=== PATIENT | female | born 1960 | race Caucasian/White ===

== ENCOUNTER 2019-01-27 10:03 | Emergency (ER) | payer OTHER ==
[2019-01-27 10:21] LABS: BASOPHILS % 0.4 % (0.0-1.5); NEUTROPHILS # 2.4 # k/uL (1.4-7.7)
--- NOTE | 2019-01-27 10:30 | Diagnostic Imaging Report ---
PATIENT MR#: [id number] PATIENT PATIENT NAME: MIK GARCIA DATE OF : 1960 REFERRING PHYSICIAN: Lyudmila Ward EXAM DATE: 01/27/2019 ACCESSION NUMBER: [id number] EXAM DESCRIPTION: CT BRAIN W/O CONTRAST CLINICAL HISTORY: LEFT SIDED FACIAL DROOP; LEFT SIDED NECK STIFFNESS; TONGUE NUMBNESS STARTED WITHIN PAST HOUR COMPARISON: No study for comparison is available at the time of interpretation. TECHNIQUE: Head CT without contrast Brain: No intracranial hemorrhage, hydrocephalus, acute parenchymal edema or evident mass. Calvarium: Unremarkable. Sinuses (partially visualized): Clear. IMPRESSION: No acute intracranial findings. Findings were called to Lyudmila Ward in the ER at 10:23 AM. Read by: Dr. Jonathan Brush Transcribed by: Jonathan Brush Transcribed Date: 01/27/2019 10:29:36 AM Electronically signed by: Dr. Jonathan Brush Date signed: 01/27/2019 10:29:44 AM
--- NOTE | 2019-01-27 10:36 | ED Physician Documentation ---
Neuro Symptoms - HISTORIAN Historian: patient - HPI Stated Complaint: left sided facial droop Chief Complaint: Neurological Symptoms (Left side facial droop) Additional Information: Patient is a 58 year old female who presents to the ER (steady gait) with c/o left facial droop this morning around 9 a.m. She states that she noticed tingling to her tongue 2-3 days ago with some left sided neck discomfort. She has tingling to the left cheek and forehead. Left sided facial droop noted with left eye not able to close. 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 Onset: hours (facial droop at 9 a.m.), days ago (tongue tingling and facial tingling 2-3 days ago) Timing: gradual onset Last known Well Date: 01/24/19 Last Known Well Time: 10:40 Last known Well Code/Unknown Code: Unknown Severity: moderate Context: denies: insect, tick bite Further Comments: yes (Denies any recent illness, no stress, no f/c/n/v/d) - CHARACTERS OF DEFICIT New Weakness: Lt facial Altered Sensation: none Vision Problems: No Impaired Speech/ Swallowing: No Decreased Ability: none Cognition is Usually: alert, oriented x3 Gait is Usually: walks w/o assistance Associated Symptoms: neck pain (left sided neck discomfort x 2-3 days) - ROS MENTAL STATUS: none CVS/Resp Upper Extremity Problem: none GI/ DYSPNEA: none MS/SKIN/LYMPH: none Neuro/Psych: none - PAST HX Past History: none Other History: none Surgeries/Procedures: none Immunizations: UTD Allergies/Adverse Reactions: Allergies Allergy/AdvReac Type Severity Reaction Status Date / Time No Known Drug Allergies Allergy Verified 01/27/19 10:11 Home Medications: Ambulatory Orders Medication Instructions Recorded Valacyclovir HCl [Valtrex] 500 mg PO BID #10 tablet 01/27/19 predniSONE [Deltasone] 10 mg PO DAILY #45 tablet 01/27/19 - FAMILY HX Family History: none - SOCIAL HX Smoking History: non-smoker Alcohol Use: none Drug Use: none - VITAL SIGNS Vital Signs: Vital Signs Temp Pulse Resp BP Pulse Ox 62 16 122/79 99 01/27/19 11:14 01/27/19 11:14 01/27/19 11:14 01/27/19 11:14 - REVIEWED ASSESSMENTS Nursing Assessment Reviewed: Yes Vitals Reviewed: Yes ED Results Lab/Radiology - Lab Results Lab Results: Lab Results 01/27/19 01/27/19 01/27/19 10:10 10:10 10:10 WBC RBC Hgb Hct MCV MCH MCHC RDW Plt Count Neut % (Auto) Lymph % (Auto) [place] % (Auto) Eos % (Auto) Baso % (Auto) Neut # (Auto) Lymph # (Auto) [place] # (Auto) Eos # (Auto) Baso # (Auto) PT 10.7 Seconds Seconds (8.8-11.9) INR 1.03 (0.80-1.10) Sodium 143 mmol/L mmol/L (137-145) Potassium 3.8 mmol/L mmol/L (3.5-5.1) Chloride 100 mmol/L mmol/L (98-107) Carbon Dioxide 32 mmol/L H mmol/L (22-30) Anion Gap 14.8 BUN 10 mg/dL mg/dL (7-17) Creatinine 0.60 mg/dL mg/dL (0.52-1.04) Estimated Creat Clear 104 Est GFR ( Amer) > 60 (60 - ) Est GFR (Non-Af Amer) > 60 (60 - ) Glucose 100 mg/dL mg/dL (74-106) Calcium 9.7 mg/dL mg/dL (8.4-10.2) Total Bilirubin 0.6 mg/dL mg/dL (0.2-1.3) AST 41 U/L U/L (15-46) ALT 22 U/L U/L (0-35) Alkaline Phosphatase 88 U/L U/L (38-126) Creatine Kinase 72 U/L U/L (30-135) CK-MB (CK-2) 1.5 ng/mL ng/mL (0.0-5.6) Troponin I < 0.012 ng/mL L ng/mL (0.012-0.034) Total Protein 8.9 g/dL H g/dL (6.3-8.2) Albumin 5.1 g/dL H g/dL (3.5-5.0) 01/27/19 10:10 WBC 5.20 K/ul K/ul (4.00-12.00) RBC 4.45 M/ul M/ul (3.90-5.20) Hgb 13.8 g/dL g/dL (11.5-16.0) Hct 40.8 % % (34.5-46.5) MCV 92.0 fl fl (80.0-100.0) MCH 31.1 pg pg (28.0-34.0) MCHC 34.0 g/dL g/dL (30.0-36.0) RDW 13.0 % % (11.3-14.3) Plt Count 349 K/mm3 K/mm3 (130-400) Neut % (Auto) 45.0 % % (39.0-79.0) Lymph % (Auto) 43.4 % % (16.0-50.0) [place] % (Auto) 8.8 % % (0.0-11.0) Eos % (Auto) 2.4 % % (0.0-6.8) Baso % (Auto) 0.4 % % (0.0-1.5) Neut # (Auto) 2.4 # k/uL # k/uL (1.4-7.7) Lymph # (Auto) 2.3 # k/uL # k/uL (0.6-4.0) [place] # (Auto) 0.5 # k/uL # k/uL (0.0-0.9) Eos # (Auto) 0.1 # k/uL # k/uL (0.0-0.6) Baso # (Auto) 0.0 # k/uL # k/uL (0.0-0.5) PT INR Sodium Potassium Chloride Carbon Dioxide Anion Gap BUN Creatinine Estimated Creat Clear Est GFR ( Amer) Est GFR (Non-Af Amer) Glucose Calcium Total Bilirubin AST ALT Alkaline Phosphatase Creatine Kinase CK-MB (CK-2) Troponin I Total Protein Albumin - Radiology Radiology Impressions: CLINICAL HISTORY: LEFT SIDED FACIAL DROOP; LEFT SIDED NECK STIFFNESS; TONGUE NUMBNESS STARTED WITHIN PAST HOUR COMPARISON: No study for comparison is available at the time of interpretation. TECHNIQUE: Head CT without contrast Brain: No intracranial hemorrhage, hydrocephalus, acute parenchymal edema or evident mass. Calvarium: Unremarkable. Sinuses (partially visualized): Clear. IMPRESSION: No acute intracranial findings. Findings were called to Lyudmila Ward in the ER at 10:23 AM. Spoke with radiologist- agrees that sx's are that of Rogers Palsy - Orders Orders: ED Orders Category Date Time Status Place IV Lock 1T Care 01/27/19 10:11 Active Telemetry NOW Care 01/27/19 10:[address] BRAIN W/O CONTRAST Stat Exams 01/27/19 Completed CBC/PLATELET/DIFF Routine Lab 01/27/19 10:10 Completed CKMB Stat Lab 01/27/19 10:10 Completed CMP Routine Lab 01/27/19 10:10 Completed CREATINE KINASE Routine Lab 01/27/19 10:10 Completed PT-INR Routine Lab 01/27/19 10:10 Completed TROPONIN I Stat Lab 01/27/19 10:10 Completed methylPREDNISolone SOD SUCC [SOLU-Medrol] Med 01/27/19 10:27 Discontinued 125 mg IVP NOW ONE Neuro Symptoms Physical Exam - Physical Exam General Appearance: no acute distress, alert HEENT: no apparent trauma, EOM's intact, PERRL, other (left eye unable to close completely) Neuro/Psych: alert, oriented x3, mood/affect nml. No: speech abnml, cognition abnml Cranial Nerves: facial palsy Cerebellar: nml as tested, nml gait Pheripheral Exam: motor nml, sensation nml Neck: normal inspection, supple Respiratory: breath sounds normal CVS: heart sounds normal Skin: color nml, no rash, warm Extremities: non-tender, normal range of motion, no evidence of injury, no edema Discharge Clincal Impression: Rogers palsy Prescriptions: predniSONE [Deltasone] 10 mg PO DAILY #45 tablet Valacyclovir HCl [Valtrex] 500 mg PO BID #10 tablet Referrals: Barby Martinez MD [Primary Care Provider] - 2 Days Condition: Good Disposition: 01 HOME, SELF-CARE Decision to Admit: NO Decision Time: 21:46
[2019-01-27] MEDS: methylPREDNISolone SOD SUCC 125 MG/2 ML VIAL IVP ONE (10:40)
[2019-01-27 10:43] LABS: eGFR (Non-African) > 60
[2019-01-27 11:17] VITALS: BP 122/79
== END 2019-01-27 11:09 | disposition home or self-care (01) ==
LOC: ED 10:03
DX: G51.0 Bell's palsy (principal)
CPT/HCPCS: 70450; 80053; 82550; 82553; 84484; 85025; 85610; 93005; 96374; 99283; J2930; S1016